=== PATIENT | male | born 1980 | race Caucasian/White ===

== ENCOUNTER 2021-02-17 09:41 | Outpatient (CLI) | payer OTHER, SELFPAY ==
--- NOTE | 2021-02-17 11:00 | NEURO_ITS ---
Impression: # Complains of pain and numbness in both hands. # Bilateral Carpal Tunnel Syndrome of moderate degree. # No ulnar neuropathy. # Needle/EMG exam with mild changes in Abd Poll Brevis bilaterally. Nerve Conduction Studies Anti Sensory Summary Table Stim Site NR Peak (ms) P-T Amp (?V) Site1 Site2 Delta-P (ms) Dist (cm) Molina (m/s) Left Median Anti Sensory (2-3nd Digit) Wrist 4.5 18.0 Wrist 2-3nd Digit 4.5 14.0 31 Wrist 5.3 19.3 Wrist 2-3nd Digit 4.5 14.0 31 Right Median Anti Sensory (2-3nd Digit) Wrist 4.9 14.1 Wrist 2-3nd Digit 4.9 14.0 29 Wrist 5.3 13.0 Wrist 2-3nd Digit 4.9 14.0 29 Left Radial Anti Sensory (Base 1st Digit) Wrist 2.1 16.8 Wrist Base 1st Digit 2.1 0.0 Right Radial Anti Sensory (Base 1st Digit) Wrist 2.2 17.7 Wrist Base 1st Digit 2.2 0.0 Left Ulnar Anti Sensory (5th Digit) Wrist 2.4 51.1 Wrist 5th Digit 2.4 14.0 58 Right Ulnar Anti Sensory (5th Digit) Wrist 2.3 44.2 Wrist 5th Digit 2.3 14.0 61 Motor Summary Table Stim Site NR Onset (ms) O-P Amp (mV) Site1 Site2 Delta-0 (ms) Dist (cm) Molina (m/s) Left Median Motor (Abd Poll Brev) Wrist 5.4 1.0 Elbow Wrist 5.5 35.0 64 Elbow 10.9 1.3 Right Median Motor (Abd Poll Brev) Wrist 5.1 2.4 Elbow Wrist 5.4 31.0 57 Elbow 10.5 2.2 Left Ulnar Motor (Abd Dig Minimi) Wrist 2.2 6.3 A Elbow Wrist 5.4 32.0 59 A Elbow 7.6 5.6 Right Ulnar Motor (Abd Dig Minimi) Wrist 2.4 8.6 A Elbow Wrist 5.2 31.0 60 A Elbow 7.6 7.7 F Wave Studies NR F-Lat (ms) L-R F-Lat (ms) Left Median (Mrkrs) (Abd Poll Brev) 32.73 0.32 Right Median (Mrkrs) (Abd Poll Brev) 33.05 0.32 Left Ulnar (Mrkrs) (Abd Dig Min) 30.02 1.35 Right Ulnar (Mrkrs) (Abd Dig Min) 28.67 1.35 EMG Side Muscle Nerve Root Ins Act Fibs Amp Dur Recrt Comment Right 1stDorInt Ulnar C8-T1 Nml Nml Nml Nml Nml Right Ext Indicis Radial (Post Int) C7-8 Nml Nml Nml Nml Nml Right Ext Digitorum Radial (Post Int) C7-8 Nml Nml Nml Nml Nml Right BrachioRad Radial C5-6 Nml Nml Nml Nml Nml Right PronatorTeres Median C6-7 Nml Nml Nml Nml Nml Right Abd Poll Brev Median C8-T1 Nml Nml Nml >12ms Reduced Left 1stDorInt Ulnar C8-T1 Nml Nml Nml Nml Nml Left Ext Indicis Radial (Post Int) C7-8 Nml Nml Nml Nml Nml Left Ext Digitorum Radial (Post Int) C7-8 Nml Nml Nml Nml Nml Left BrachioRad Radial C5-6 Nml Nml Nml Nml Nml Left PronatorTeres Median C6-7 Nml Nml Nml Nml Nml Left Abd Poll Brev Median C8-T1 Nml Nml Nml >12ms Reduced MTDD
== END 2021-02-17 09:42 | disposition home or self-care (01) ==
PROVIDERS: PCP Family Medicine; Visit Provider Family Medicine
DX: G56.03 Carpal tunnel syndrome, bilateral upper limbs (principal)
CPT/HCPCS: 95886; 95911

== ENCOUNTER 2024-05-02 18:33 | Emergency (ER) | payer OTHER, SELFPAY ==
--- NOTE | ~2024-05-02 | CT_ITS ---
EXAMINATION: CT abdomen pelvis w con DATE: 05/02/2024 21:37 INDICATION: Left lower quadrant abdominal pain. TECHNIQUE: Computed tomography (CT) of the abdomen and pelvis was performed with 100 mL Omnipaque 350 intravenous contrast. Automated exposure control and iterative reconstruction technique were employe d. The dose-length product was 1282.35 mGy-cm. COMPARISON: None. FINDINGS: The visualized portions of the lung bases are clear without pneumonia or pleural effusion. The heart size is normal. No pericardial effusion. The liver, gallbladder, spleen, pancreas, adrenal glands, and right kidney are normal. There is moderate left hydronephrosis and hydroureter. There is a 7 mm stone in distal left ureter. There is diverticulosis of the colon without evidence of divertic ulitis. The appendix is normal. There are no pathologically enlarged lymph nodes. There is no free in traperitoneal fluid. There is mild thoracic and lumbar spondylosis. There is mild chronic anterior we dging of multiple vertebral bodies. IMPRESSION: 1. 7 mm stone in distal left ureter with moderate left hydronephrosis and hydroureter. Reviewed, dictated and finalized at location A. IMPRESSION: 1. 7 mm stone in distal left ureter with moderate left hydronephrosis and hydro ureter.
[2024-05-02 18:38] VITALS: BP 136/94; PULSE 91; RESP 16; TEMP 37.1; O2SAT 99
[2024-05-02 19:29] LABS: Basophils Absolute Auto 0.1 K/mm3 (0.0-0.1); Basophils Percent Auto 0.5 % (0.2-1.2); Eosinophils Absolute Auto 0.3 K/mm3 (0-0.3); Eosinophils Percent Auto 2.5 % (0-4.4); Hematocrit 46.4 % (42.0-52.0); Immature Granulocyte Absolute 0.11 K/mm3 (0.00-0.031); Immature Granulocyte Percent A 0.8 % (0-0.5); Lymphocytes Absolute Auto 2.55 K/mm3 (0.9-3.2); Mean Corpuscular HGB Conc 34.5 g/dl (32-36); Mean Corpuscular Hemoglobin 32.8 pg (26-34); Mean Corpuscular Volume 95.1 fl (80-100); Mean Platelet Volume 9.3 fl (7.4-10.4); Monocytes Absolute Auto 1.1 K/mm3 (0.1-0.6); Neutrophils Absolute Auto 9.3 K/mm3 (1.3-6.7); Neutrophils Percent Auto 69.2 % (45.5-73.1); Platelet Count Result 277 k/mm3 (150-375); Red Blood Count 4.88 M/mm3 (4.6-6.20); Red Cell Distribution Width 13.5 % (11.5-14.5); White Blood Count 13.4 K/mm3 (4.5-10.0)
[2024-05-02] MEDS: SODIUM CHLORIDE 0.9% IV 1,000 ML 999 ML IV CONT (19:33)
[2024-05-02 19:43] LABS: Alanine Aminotransferase 41 U/L (6-50); Alkaline Phosphatase 75 U/L (38-126); Anion Gap 14 mmol/L (4-12); Aspartate Amino Transferase 46 U/L (17-59); Bilirubin,Total 0.5 mg/dL (0.2-1.3); Blood Urea Nitrogen 20 mg/dL (9-20); Calcium 10.1 mg/dL (8.4-10.2); Carbon Dioxide 24 mmol/L (22-30); Chloride 100 mmol/L (98-107); Estimated CRCL calculation 98 ml/min; Estimated Glomerular Filt Rate > 60; Glucose 112 mg/dL (65-110); Potassium 3.7 mmol/L (3.4-5.0); Sodium 138 mmol/L (137-145)
--- NOTE | 2024-05-02 19:58 | ED.GENADULT ---
HPI - General Adult General Chief complaint: Urogenital-Male Stated complaint: problems urinating 5-6 days Time Seen by Provider: 05/02/24 19:02 History of Present Illness HPI narrative: Patient is a 43-year-old male who presents emergency department this evening complaining of an inability to fully empty his bladder. Patient states that he has been trying to urinate all day and has noticed that only a small amount of urine has been coming out despite him feeling like he has a full bladder. Patient states that when he got to the hospital he was able to provide us a urine sample and states that although it was not a lot he felt better after voiding. Denies any history of kidney stones but admits that he has been having some left lower quadrant abdominal pain radiating to his left flank. It denies any fevers or chills, nausea or vomiting. Denies any dysuria or hematuria. No additional symptoms or concerns at this time. Related Data Allergies Allergy/AdvReac Type Severity Reaction Status Date / Time No Known Allergies Allergy Verified 05/02/24 18:40 Review of Systems Review of Systems: All systems are reviewed and are negative unless stated otherwise in the HPI. Exam Narrative: General: Alert, awake, afebrile, in no acute distress. HEENT: PERRL, no rhinorrhea, no post nasal drip, oropharynx clear. Cardiovascular: Regular rate and rhythm, no murmurs, rubs or gallops, no peripheral edema. Respiratory: Clear to auscultation bilaterally, no tachypnea, no wheezing, no rhonchi, no rubs, no respiratory distress. Abdomen: Soft, nontender, nondistended, no rebound, no guarding, no peritoneal signs. Musculoskeletal: No joint swelling or deformity, normal muscle tone. Skin: No rashes or petechia, no signs of infection. Neurological: Alert and oriented to person, place, and time. Follows all commands. No focal deficits, speech is clear and fluent. Course Vital Signs Vital signs: Vital Signs Temperature 98.7 F 05/02/24 18:38 Pulse Rate 91 05/02/24 18:38 Respiratory Rate 16 05/02/24 18:38 Blood Pressure 136/94 H 05/02/24 18:38 Pulse Oximetry 99 05/02/24 18:38 Temperature 98.7 F 05/02/24 18:38 Pulse Rate 91 05/02/24 18:38 Respiratory Rate 16 05/02/24 18:38 Blood Pressure 136/94 H 05/02/24 18:38 Pulse Oximetry 99 05/02/24 18:38 Medical Decision Making MDM Narrative Medical decision making narrative: The patient was evaluated by myself in the emergency department. History is obtained from patient who is an independent historian and physical exam was performed. External medical records were reviewed at this time. IV was established and pertinent tests were ordered. Patient was administered a 1 L IV fluid bolus with normal saline. Patient declined pain medications at this time stating that his pain has resolved after he urinated. Laboratory results obtained revealing a white blood cell count of 13.4 otherwise unremarkable. Urinalysis currently pending. Imaging studies obtained included CT abdomen and pelvis with IV contrast which is currently pending. Differential diagnosis considerations include urinary tract infection, kidney stones, diverticulitis. Comorbidities impacting this visit include none. I have evaluated and discussed social determinants of health with the patient that could potentially impact subsequent diagnosis and treatment plans. At this time, patient is requesting to be discharged against medical advice. Patient was informed that his urine results and CT results are currently pending and patient states that he does not want to wait any longer. Patient is sound mind capable of making his own medical decisions. He understands the risks by leaving prior to completion of his workup which include worsening of his condition and . Vital Signs Vital Signs: Vital Signs Temperature 98.7 F 05/02/24 18:38 Pulse Rate 91 05/02/24 18:38 Respiratory Ra
[2024-05-02 22:00] LABS: Add Urine Microscopic? YES; Appearance Urine Clear (Clear); Bacteria Urine None Seen /hpf; Bilirubin Urine Negative (Negative); Blood Urine Trace (Negative); Calcium Oxalate Crystals Urine Present /hpf; Color Urine Yellow (Yellow); Glucose Urine UA Negative (Negative); Ketones Urine Trace mg/dL (Negative); Leukocyte Esterase Ur Negative LEU/UL (Negative); Nitrate Urine Negative (Negative); Protein Urine Negative (Negative); Squamous Epithelial Cell Urine None Seen /hpf (Few); Urobilinogen Urine 0.2 mg/dL (<2.0); pH Urine 5.5 (5.0-9.0)
== END 2024-05-02 21:55 | disposition left against medical advice (07) ==
PROVIDERS: Emergency Medicine; Emergency Provider Emergency Medicine
DX: R10.32 Left lower quadrant pain (principal); N13.2 Hydronephrosis with renal and ureteral calculous obstruction
CPT/HCPCS: 36415; 74177; 80053; 81001; 85025; 87086; 96360; 99284; J7030; Q9967